=== PATIENT | male | born 1980 | race Caucasian/White ===

== ENCOUNTER → 2018-07-12 | Outpatient (CLI) | payer BC ==
--- NOTE | 2018-07-13 09:49 | KCIC ---
Left toe radiographs History: Great toe pain, dropped battery on toe a week ago Comparison: None. Findings: 2 views of the left first digit of the foot are submitted. Not well seen on lateral view, there is a longitudinally oriented, nondisplaced fracture of the mid to lateral aspect of the distal first phalanx. Impression: 1. There is a nondisplaced fracture of the distal first phalanx. Electronically signed by: Wesley Munroe MD (07/12/2018 4:58 PM) [id number]
== END ==
LOC: KCIC 14:19
PROVIDERS: ATTEND Nurse Practitioner Family
DX: S62.661A Nondisplaced fracture of distal phalanx of left index finger, initial encounter for closed fracture (principal); X58.XXXA Exposure to other specified factors, initial encounter; Y93.89 Activity, other specified; Y92.89 Other specified places as the place of occurrence of the external cause; Y99.8 Other external cause status
CPT/HCPCS: 73660